=== PATIENT | female | born 1960 | race Caucasian/White ===

== ENCOUNTER 2023-04-19 13:18 | Emergency (ER) | payer OTHER ==
[~2023-04-19] VITALS: Ht 165.1 cm; Wt 62.2 kg
[2023-04-19] MEDS ORDERED: normal saline 1000ML IV soln IVB ONE (14:25)
[2023-04-19] MEDS ORDERED: ondansetron/PF 4mg/2ml inj IV ONE (14:25)
[2023-04-19] MEDS ORDERED: ketorolac trometh. 30mg/ml inj. IV ONE (14:25)
[2023-04-19 14:59] LABS: BASOPHILS # (AUTO) 0.1 X10'3 (0-0.2); BASOPHILS % (AUTO) 0.5 % (0-1); EOSINOPHILS % (AUTO) 0.4 % (0-6); HEMATOCRIT 41.7 % (35.0-45.0); HEMOGLOBIN 13.9 g/dl (12.0-16.0); LYMPHOCYTES # (AUTO) 2.2 X10'3 (1.1-4.8); LYMPHOCYTES % (AUTO) 19.3 % (21-51); MEAN CORPUSCULAR HEMOGLOBIN 30.2 PG (27.0-31.0); MEAN CORPUSCULAR HGB CONC 33.4 g/dL (33.0-36.5); MEAN CORPUSCULAR VOLUME 90.3 FL (78-98); MEAN PLATELET VOLUME 9.3 FL (7.4-10.4); MONOCYTES # (AUTO) 0.6 X10'3 (0-0.9); MONOCYTES % (AUTO) 5.1 % (2-12); NEUTROPHILS # (AUTO) 8.5 X10'3 (1.8-7.7); NEUTROPHILS % (AUTO) 74.7 % (42-75); PLATELET COUNT 239 X10'3 (140-440); RED BLOOD COUNT 4.61 X10'6 (4.20-5.60); RED CELL DISTRIBUTION WIDTH 15.2 % (11.5-14.5); WHITE BLOOD COUNT 11.4 X10'3 (4.5-11.0)
[2023-04-19 15:10] LABS: ALANINE AMINOTRANSFERASE 20 U/L (12-78); ALBUMIN 3.3 G/DL (3.4-5.0); ALBUMIN/GLOBULIN RATIO 0.9 (1.1-1.5); ALKALINE PHOSPHATASE 72 IU/L (46-116); ANION GAP 12 (8-16); ASPARTATE AMINO TRANSFERASE 14 U/L (10-37); BILIRUBIN,TOTAL 0.3 MG/DL (0.1-1.0); BLOOD UREA NITROGEN 17 MG/DL (7-18); BUN/CREATININE RATIO 22.7 (10.0-20.0); CHLORIDE 101 MMOL/L (99-107); CREATININE 0.75 MG/DL (0.40-0.90); GLUCOSE 104 MG/DL (70-104); POTASSIUM 4.2 MMOL/L (3.5-5.1); SODIUM 137 MMOL/L (135-145); TOTAL CARBON DIOXIDE 24.2 MMOL/L (24-32); TOTAL PROTEIN 6.9 G/DL (6.4-8.2); eGFR 78 ML/MIN
[2023-04-19] MEDS ORDERED: iohexol 300mg/ml 100ml inj. ONE (15:12)
[2023-04-19 16:30] LABS: CLARITY,URINE CLOUDY (Clear); COLOR,URINE YELLOW (Yellow); GLUCOSE, URINE NEGATIVE (Neg); KETONES,URINE NEGATIVE (Neg); LEUKOCYTE ESTERASE ,URINE SMALL (Neg); NITRITES, URINE POSITIVE (Neg); OCCULT BLOOD,URINE TRACE-INTACT (Neg); PROTEIN,URINE NEGATIVE (Neg); UROBILINOGEN,URINE 0.2 E.U/dL (0.2-1.0)
[2023-04-19 16:45] LABS: UA COLLECTION TYPE CLN CATCH MIDSTREAM
[2023-04-19 16:47] LABS: BACTERIA,URINE 4+ /HPF (Neg); MUCUS STRANDS FEW /LPF (Neg); WBC CLUMPS,URINE MANY /HPF (NEGATIVE); WBC,URINE 50-100 /HPF (0-4)
[2023-04-19 16:48] LABS: RBC,URINE 0-2 /HPF (0-2); SQUAMOUS EPITHELIAL CELL,UR MODERATE /LPF (FEW)
[2023-04-19] MEDS ORDERED: CefTRIAXone/D5W-Rocephin 1gm 50 ML IV ONE (16:55)
[2023-04-19] MEDS ORDERED: OXYC-150 PO (17:03)
[2023-04-19] MEDS ORDERED: ONDA-103 PO (17:03)
[2023-04-19] MEDS ORDERED: FLO0.4C PO (17:03)
[2023-04-19] MEDS ORDERED: CEPH-585 PO (17:03)
[2023-04-19] MEDS ORDERED: IBUP-1986 PO (17:03)
[2023-04-19 17:56] VITALS: BP 127/71; PULSE 72; RESP 17; O2SAT 98
[2023-04-19] MEDS ORDERED: CefTRIAXone 1000mg IM Kit (w/lidocaine diluent) IM ONE (18:00)
--- NOTE | 2023-04-19 18:22 | NUR ---
PT WAITED 15 AFTER IM SHOT WAS ADMINISTERED AND VS WNL
== END 2023-04-19 18:23 | disposition home or self-care (01) ==
LOC: ER 13:19
DX: N20.0 Calculus of kidney (principal); N39.0 Urinary tract infection, site not specified; R91.1 Solitary pulmonary nodule; F17.200 Nicotine dependence, unspecified, uncomplicated; Z91.040 Latex allergy status; Z79.1 Long term (current) use of non-steroidal anti-inflammatories (NSAID); Z79.2 Long term (current) use of antibiotics
CPT/HCPCS: 36415; 74177; 80053; 81001; 85025; 87077; 87088; 87186; 96361; 96372; 96374; 96375; 99285; J0696; J1885; J2405; J3490; J7030; Q9967

== ENCOUNTER 2024-01-08 08:53 | Emergency (ER) | payer BC, OTHER ==
[~2024-01-08] VITALS: Ht 165.1 cm; Wt 64.3 kg
[~2024-01-08 08:53] MED LIST: CEPH-585 PO; IBUP-1986 PO; ONDA-103 PO; OXYC-150 PO
[2024-01-08 09:05] VITALS: BP 127/68; PULSE 85; RESP 16; O2SAT 95
[2024-01-08] MEDS ORDERED: dexamethasone sod phosphate 10mg/ml inj IM STA (10:44)
[2024-01-08] MEDS ORDERED: AMOX-117 PO (10:44)
[2024-01-08] MEDS ORDERED: ketorolac tromethamine 15mg/ml inj. IM ONE (10:45)
[2024-01-08 10:53] VITALS: TEMP 98.6
== END 2024-01-08 10:55 | disposition home or self-care (01) ==
LOC: ER 08:54
DX: K04.7 Periapical abscess without sinus (principal); Z91.040 Latex allergy status; Z79.1 Long term (current) use of non-steroidal anti-inflammatories (NSAID); Z79.2 Long term (current) use of antibiotics
CPT/HCPCS: 99283